=== PATIENT | female | born 1945 | race Caucasian/White ===

== ENCOUNTER 2016-06-14 07:24 | Inpatient (IN) | payer MEDICARE, BC ==
[2016-06-14] VITALS (19 sets, daily range): BP systolic 84–177; RESP 13–24; TEMP 97.3–98.2; Ht 160 cm; Wt 51.3 kg
[~2016-06-14] VITALS: Ht 160 cm; Wt 51.3 kg
[2016-06-14] MEDS ORDERED: CLINDAMYCIN 900 MG in DEXTROSE 5% 50 ML IV ONE (07:30)
[2016-06-14] MEDS ORDERED: ONDANSETRON 4 MG VIAL IV PUSH ONE (07:51)
[2016-06-14] MEDS ORDERED: NEOSTIGMINE 10 MG/10 ML VIAL IV ONE (07:51)
[2016-06-14] MEDS ORDERED: GLYCOPYRROLATE 0.2 MG/ML VIAL IV ONE ×2 (07:51→08:10)
[2016-06-14] MEDS ORDERED: FENTANYL 100 MCG/2 ML AMP IV ONE (07:51)
[2016-06-14] MEDS ORDERED: DEXAMETHASONE 4 MG/ML VIAL IV ONE (07:51)
[2016-06-14] MEDS ORDERED: KETAMINE INJ 50 MG/ML VIAL IV ONE (07:51)
[2016-06-14] MEDS ORDERED: PROPOFOL 20 ML PER ML IV ONE (07:51)
[2016-06-14] MEDS ORDERED: LIDOCAINE 2% SYR 5 ML IV ONE (07:51)
[2016-06-14] MEDS ORDERED: ROCURONIUM 50 MG VIAL IV ONE (07:51)
[2016-06-14] MEDS ORDERED: MIDAZOLAM 2 MG/2 ML INJ IV ONE (08:10)
[2016-06-14] MEDS ORDERED: LACT RINGERS 1,000 ML IV SCH (08:10)
[2016-06-14] MEDS ORDERED: LIDOCAINE 1% BUFFERED 1 ML SYR INTRADERM PRN (08:10)
[2016-06-14] MEDS ORDERED: SCOPOLAMINE PATCH TRANSDERM ONE (08:10)
[2016-06-14] MEDS ORDERED: ONDANSETRON 4 MG VIAL IV ONE (08:10)
[2016-06-14] MEDS ORDERED: ONDANSETRON 4 MG VIAL IV PRN ×2 (10:05→12:25)
[2016-06-14] MEDS ORDERED: MORPHINE 4 MG/ML SYR IV PRN (10:05)
[2016-06-14] MEDS ORDERED: OXYCODONE 5 MG TAB PO PRN (10:05)
[2016-06-14] MEDS ORDERED: MEPERIDINE 25 MG/ML IV PRN (10:05)
[2016-06-14] MEDS ORDERED: DILAUDID 1 MG/ML AMP IV PRN (10:05)
[2016-06-14] MEDS ORDERED: MORPHINE 2 MG/ML SYR IV PRN (10:05)
[2016-06-14] MEDS ORDERED: CHLORASEPTIC 180 ML BTL PO PRN (12:25)
[2016-06-14] MEDS ORDERED: GABAPENTIN 300 MG CAP PO PRN (12:25)
[2016-06-14] MEDS ORDERED: CYCLOBENZAPRINE 5 MG TAB PO PRN (12:25)
[2016-06-14] MEDS ORDERED: SODIUM CHLORIDE 0.9% 1,000 ML IV SCH (12:25)
[2016-06-14] MEDS ORDERED: BACITRACIN 50,000 UNITS INJ IRRIG ONE (14:02)
[2016-06-14] MEDS ORDERED: GELATIN SPONGE 12 CM2 TOPICAL ONE (14:02)
[2016-06-14] MEDS ORDERED: BUPIVACA/EPI 0.5% PF 10 ML NERVEBLOCK ONE (14:02)
[2016-06-14] MEDS ORDERED: THROMBIN 5000 UNIT KIT TOPICAL ONE (14:02)
[2016-06-14] MEDS: CLINDAMYCIN 900 MG in DEXTROSE 5% 50 ML IV SCH ×2 (16:36→21:36)
[2016-06-14] MEDS: LEVOTHYROXINE 0.05 MG TAB PO SCH (16:37)
[2016-06-14] MEDS: FOLIC ACID 1 MG TAB PO SCH (16:39)
[2016-06-14] MEDS: MORPHINE 4 MG/ML SYR IV PRN (16:41)
[2016-06-14] MEDS: DOCUSATE SOD 100 MG CAP PO SCH (21:35)
[2016-06-15 03:13] VITALS: BP_SYST 100; RESP 16; TEMP 97.8
[2016-06-15] MEDS: CLINDAMYCIN 900 MG in DEXTROSE 5% 50 ML IV SCH ×2 (04:00→08:44)
[2016-06-15] MEDS: LEVOTHYROXINE 0.05 MG TAB PO SCH (07:00)
[2016-06-15 07:20] VITALS: BP_SYST 115; RESP 16; TEMP 96.1
[2016-06-15] MEDS ORDERED: SALINE FLUSH 10 ML FLUSH PRN (08:00)
[2016-06-15] MEDS ORDERED: SODIUM CHLORIDE 0.9% FLUSH BAG 500 ML IV PRN (08:00)
[2016-06-15] MEDS: SALINE FLUSH 10 ML FLUSH SCH ×2 (08:44→20:36)
[2016-06-15] MEDS: FOLIC ACID 1 MG TAB PO SCH (08:44)
[2016-06-15] MEDS: DOCUSATE SOD 100 MG CAP PO SCH ×2 (08:44→20:36)
[2016-06-15] MEDS: MORPHINE 4 MG/ML SYR IV PRN ×3 (10:28→23:54)
[2016-06-15] MEDS ORDERED: REMOVE TRANSDERMAL PATCH TOPICAL ONE (11:25)
[2016-06-15 11:30] VITALS: BP_SYST 124; RESP 16; TEMP 97.9
[2016-06-15 14:59] VITALS: BP_SYST 108; RESP 16; TEMP 98.1
[2016-06-15] MEDS ORDERED: ACETAMINOPHEN 325 MG TAB PO PRN (18:45)
[2016-06-15 19:17] VITALS: BP_SYST 138; RESP 16; TEMP 97.8
[2016-06-15] MEDS: OXYCODONE/APAP 5/325 TAB PO PRN ×2 (21:33→22:46)
[2016-06-15 23:12] VITALS: BP_SYST 118; RESP 16; TEMP 98.3
[2016-06-16 03:07] VITALS: BP_SYST 113; RESP 16; TEMP 97.5
[2016-06-16] MEDS: LEVOTHYROXINE 0.05 MG TAB PO SCH (06:15)
[2016-06-16 07:07] VITALS: BP_SYST 111; RESP 18; TEMP 97.3
[2016-06-16] MEDS: FOLIC ACID 1 MG TAB PO SCH (07:29)
[2016-06-16] MEDS: DOCUSATE SOD 100 MG CAP PO SCH ×2 (07:29→20:12)
[2016-06-16] MEDS: SALINE FLUSH 10 ML FLUSH SCH ×2 (07:31→20:00)
[2016-06-16] MEDS: OXYCODONE/APAP 5/325 TAB PO PRN ×3 (07:34→19:47)
[2016-06-16 10:59] VITALS: BP_SYST 104; RESP 18; TEMP 97.9
[2016-06-16] MEDS: MORPHINE 4 MG/ML SYR IV PRN (13:58)
[2016-06-16 15:18] VITALS: BP_SYST 150; RESP 18; TEMP 98.3
[2016-06-16 19:18] VITALS: BP_SYST 104; RESP 18; TEMP 98.1
[2016-06-16 22:48] VITALS: BP_SYST 140; RESP 18; TEMP 98
[2016-06-17] VITALS (7 sets, daily range): BP systolic 100–149; RESP 14–18; TEMP 97.4–98.2
[2016-06-17] MEDS: OXYCODONE/APAP 5/325 TAB PO PRN ×5 (03:36→20:26)
[2016-06-17] MEDS: LEVOTHYROXINE 0.05 MG TAB PO SCH (07:00)
[2016-06-17] MEDS: DOCUSATE SOD 100 MG CAP PO SCH ×2 (07:55→20:32)
[2016-06-17] MEDS: GABAPENTIN 300 MG CAP PO SCH ×3 (07:56→20:31)
[2016-06-17] MEDS: FOLIC ACID 1 MG TAB PO SCH (08:00)
[2016-06-17] MEDS: SALINE FLUSH 10 ML FLUSH SCH ×2 (08:00→20:30)
[2016-06-17] MEDS ORDERED: REMOVE SCOPALAMINE PATCH XX ONE (08:10)
[2016-06-17] MEDS ORDERED: METHOTREXATE 2.5 MG TAB PO SCH (09:00)
[2016-06-18 03:16] VITALS: BP_SYST 112; RESP 16; TEMP 98
[2016-06-18] MEDS: LEVOTHYROXINE 0.05 MG TAB PO SCH (06:28)
[2016-06-18] MEDS ORDERED: MISSING DOSE XX ONE (07:20)
[2016-06-18 07:23] VITALS: BP_SYST 136; RESP 15; TEMP 98.2
[2016-06-18] MEDS: SALINE FLUSH 10 ML FLUSH SCH (08:49)
[2016-06-18] MEDS: FOLIC ACID 1 MG TAB PO SCH (08:49)
[2016-06-18] MEDS: GABAPENTIN 300 MG CAP PO SCH ×2 (08:50→16:10)
[2016-06-18] MEDS: OXYCODONE/APAP 5/325 TAB PO PRN ×3 (08:50→17:32)
[2016-06-18] MEDS: DOCUSATE SOD 100 MG CAP PO SCH (08:50)
[2016-06-18 11:42] VITALS: BP_SYST 118; RESP 15; TEMP 97.8
[2016-06-18 11:43] VITALS: BP_SYST 136; RESP 15; TEMP 98.2
[2016-06-18 15:51] VITALS: BP_SYST 144; RESP 15; TEMP 97.5
== END 2016-06-18 19:14 | DRG 460 ==
LOC: ENRESERVTM → ENRESERVDT → SDS 07:24 → ENPENDDIS 07:24 → EDSTATUS 09:15 → 5THE 13:23
PROVIDERS: ADMIT Neurological Surgery; ATTEND Neurological Surgery
PROC: 0SG0071 Fusion of Lumbar Vertebral Joint with Autologous Tissue Substitute, Posterior Approach, Posterior Column, Open Approach (ICD-10-PCS; principal; 2016-06-14 09:48)
DX: M48.06 Spinal stenosis, lumbar region (principal); M43.16 Spondylolisthesis, lumbar region
CPT/HCPCS: 72020; 76001; 80048; 94799

== ENCOUNTER 2016-06-18 15:21 | Inpatient (IN) | payer MEDICARE, BC ==
[~2016-06-18] VITALS: Ht 157.5 cm; Wt 53.1 kg
[2016-06-18] MEDS ORDERED: SALINE FLUSH 10 ML FLUSH PRN (18:55)
[2016-06-18] MEDS ORDERED: MORPHINE 2 MG/ML SYR IV PRN (18:55)
[2016-06-18] MEDS ORDERED: DOCUSATE SOD 100 MG CAP PO PRN (18:55)
[2016-06-18] MEDS ORDERED: CYCLOBENZAPRINE 5 MG TAB PO PRN (18:55)
[2016-06-18] MEDS ORDERED: MORPHINE 4 MG/ML SYR IV PRN (18:55)
[2016-06-18] MEDS ORDERED: MAG HYDROX 30 ML UDC PO PRN (19:15)
[2016-06-18] MEDS ORDERED: PNEUMO VAC 25 MCG/0.5 ML VL IM.VACC ONE (19:15)
[2016-06-18 19:57] VITALS: BP_SYST 112; RESP 18; TEMP 97.7
[2016-06-18 19:58] VITALS: BP_SYST 106
[2016-06-18] MEDS ORDERED: SALINE FLUSH 10 ML FLUSH SCH (20:00)
[2016-06-18] MEDS ORDERED: TUBERCULIN PPD 5 UNIT SYR ID.VACC ONE (21:00)
[2016-06-18] MEDS: GABAPENTIN 300 MG CAP PO SCH (21:12)
[2016-06-19 05:04] VITALS: BP_SYST 122; RESP 18
[2016-06-19 05:05] VITALS: TEMP 97.2
[2016-06-19] MEDS: LEVOTHYROXINE 0.05 MG TAB PO SCH (05:57)
[2016-06-19] MEDS ORDERED: SODIUM CHLORIDE 0.9% FLUSH BAG 500 ML IV SCH (06:00)
[2016-06-19] MEDS: GABAPENTIN 300 MG CAP PO SCH ×3 (08:38→21:22)
[2016-06-19] MEDS: FOLIC ACID 1 MG TAB PO SCH (08:38)
[2016-06-19] MEDS: OXYCODONE 5 MG TAB PO PRN ×3 (08:40→21:26)
[2016-06-19 14:17] VITALS: BP_SYST 119; RESP 18; TEMP 98.4
[2016-06-19 16:13] VITALS: BP_SYST 132; RESP 20; TEMP 98
[2016-06-20] MEDS: OXYCODONE 5 MG TAB PO PRN ×4 (02:55→21:20)
[2016-06-20 05:52] VITALS: BP_SYST 125; RESP 20; TEMP 98.4
[2016-06-20] MEDS: LEVOTHYROXINE 0.05 MG TAB PO SCH (06:01)
[2016-06-20] MEDS: GABAPENTIN 300 MG CAP PO SCH ×3 (08:23→21:20)
[2016-06-20] MEDS: FOLIC ACID 1 MG TAB PO SCH (08:23)
[2016-06-20 09:46] VITALS: BP_SYST 106; RESP 20; TEMP 98.3
[2016-06-20 16:17] VITALS: BP_SYST 129; RESP 18; TEMP 98.2
[2016-06-20 19:35] VITALS: BP_SYST 103; RESP 16; TEMP 98.3
[2016-06-20] MEDS ORDERED: SKIN TEST: READ AND RECORD XX SCH (21:00)
[2016-06-21] MEDS: OXYCODONE 5 MG TAB PO PRN ×4 (02:29→20:47)
[2016-06-21 02:35] VITALS: BP_SYST 115; RESP 18; TEMP 98.4
[2016-06-21] MEDS: LEVOTHYROXINE 0.05 MG TAB PO SCH (06:18)
[2016-06-21] MEDS: FOLIC ACID 1 MG TAB PO SCH (08:37)
[2016-06-21] MEDS: GABAPENTIN 300 MG CAP PO SCH ×3 (08:38→20:46)
[2016-06-21] MEDS ORDERED: METHOTREXATE 2.5 MG TAB PO SCH (09:00)
[2016-06-21 12:53] VITALS: BP_SYST 115; RESP 20; TEMP 97.9
[2016-06-21 13:51] VITALS: Ht 157.5 cm; Wt 53.1 kg
[2016-06-21 14:11] VITALS: BP_SYST 115; RESP 20; TEMP 97.9
[2016-06-21 16:36] VITALS: BP_SYST 123; TEMP 99.6
[2016-06-22 01:03] VITALS: BP_SYST 107; RESP 20; TEMP 98.6
[2016-06-22 01:04] VITALS: TEMP 98.6
[2016-06-22] MEDS: LEVOTHYROXINE 0.05 MG TAB PO SCH (06:10)
[2016-06-22] MEDS: FOLIC ACID 1 MG TAB PO SCH (08:56)
[2016-06-22] MEDS: OXYCODONE 5 MG TAB PO PRN ×2 (08:56→21:10)
[2016-06-22] MEDS: GABAPENTIN 300 MG CAP PO SCH ×4 (08:56→21:10)
[2016-06-22 10:08] VITALS: BP_SYST 107; RESP 18; TEMP 100.1
[2016-06-22 14:14] VITALS: BP_SYST 108; TEMP 99.5
[2016-06-22 16:43] VITALS: BP_SYST 112; RESP 20; TEMP 99.4
[2016-06-22] MEDS ORDERED: MISSING DOSE XX ONE (20:35)
[2016-06-22] MEDS: GUAIFEN/DM 10 ML UDC PO PRN (21:09)
[2016-06-23 05:27] VITALS: BP_SYST 110; RESP 20; TEMP 97.9
[2016-06-23] MEDS: LEVOTHYROXINE 0.05 MG TAB PO SCH (06:20)
[2016-06-23] MEDS: FOLIC ACID 1 MG TAB PO SCH (08:31)
[2016-06-23] MEDS: GABAPENTIN 300 MG CAP PO SCH ×3 (08:31→20:55)
[2016-06-23] MEDS: OXYCODONE 5 MG TAB PO PRN ×3 (08:31→20:58)
[2016-06-23 11:08] VITALS: BP_SYST 100; RESP 18; TEMP 97.6
[2016-06-23 16:25] VITALS: BP_SYST 94; RESP 18; TEMP 99
[2016-06-23] MEDS ORDERED: MISSING DOSE XX ONE (19:35)
[2016-06-23] MEDS: GUAIFEN/DM 10 ML UDC PO PRN (20:55)
[2016-06-24 05:11] VITALS: BP_SYST 99; RESP 18; TEMP 97.8
[2016-06-24] MEDS: LEVOTHYROXINE 0.05 MG TAB PO SCH (06:20)
[2016-06-24] MEDS ORDERED: METHOTREXATE 2.5 MG TAB PO SCH (09:00)
[2016-06-24] MEDS: FOLIC ACID 1 MG TAB PO SCH (09:16)
[2016-06-24] MEDS: GABAPENTIN 300 MG CAP PO SCH ×3 (09:16→21:10)
[2016-06-24] MEDS: OXYCODONE 5 MG TAB PO PRN ×3 (09:17→21:11)
[2016-06-24 11:55] VITALS: BP_SYST 101; RESP 18; TEMP 98.1
[2016-06-24 15:57] VITALS: BP_SYST 98; RESP 20; TEMP 98.1
[2016-06-24] MEDS ORDERED: MISSING DOSE XX ONE (21:15)
[2016-06-24] MEDS: GUAIFEN/DM 10 ML UDC PO PRN (21:59)
[2016-06-25 00:03] VITALS: RESP 20; TEMP 97.4
[2016-06-25 00:04] VITALS: BP_SYST 120
[2016-06-25] MEDS: LEVOTHYROXINE 0.05 MG TAB PO SCH (06:22)
[2016-06-25] MEDS: FOLIC ACID 1 MG TAB PO SCH (08:14)
[2016-06-25] MEDS: GABAPENTIN 300 MG CAP PO SCH ×3 (08:14→21:07)
[2016-06-25] MEDS ORDERED: DOCUSATE SOD 100 MG CAP PO PRN (10:30)
[2016-06-25 10:34] VITALS: BP_SYST 101; RESP 20; TEMP 98.2
[2016-06-25] MEDS: GUAIFEN/DM 10 ML UDC PO PRN ×2 (14:02→21:06)
[2016-06-25] MEDS: ACETAMINOPHEN 325 MG TAB PO PRN ×2 (14:38→21:06)
[2016-06-25 15:51] VITALS: BP_SYST 127; RESP 20; TEMP 98.1
[2016-06-25] MEDS ORDERED: TUBERCULIN PPD 5 UNIT SYR ID.VACC ONE (21:00)
[2016-06-26 04:22] VITALS: BP_SYST 118; RESP 20; TEMP 97.8
[2016-06-26] MEDS: LEVOTHYROXINE 0.05 MG TAB PO SCH (06:11)
[2016-06-26 07:00] VITALS: BP_SYST 137; RESP 16; TEMP 97.4
[2016-06-26] MEDS: FOLIC ACID 1 MG TAB PO SCH (08:48)
[2016-06-26] MEDS: ACETAMINOPHEN 325 MG TAB PO PRN (08:48)
[2016-06-26] MEDS: OXYCODONE 5 MG TAB PO PRN (08:49)
[2016-06-26] MEDS: GABAPENTIN 300 MG CAP PO SCH (08:50)
[2016-06-26 11:14] VITALS: BP_SYST 137; RESP 16; TEMP 97.4
== END 2016-06-26 17:38 | disposition home health service (06) | DRG 556 ==
LOC: NF 18:47
PROVIDERS: ADMIT Neurological Surgery; ATTEND Neurological Surgery
DX: R26.2 Difficulty in walking, not elsewhere classified (principal); M43.16 Spondylolisthesis, lumbar region; Z47.89 Encounter for other orthopedic aftercare
CPT/HCPCS: 82947; 86580